=== PATIENT | female | born 1970 | race Caucasian/White ===

== ENCOUNTER 2020-01-24 01:22 | Emergency (ER) | payer SELFPAY ==
[2020-01-24 01:31] VITALS: BP 172/102; PULSE 92; RESP 16; TEMP 36.9; O2SAT 97
--- NOTE | 2020-01-24 01:47 | ED.SKABFB ---
HPI - Skin/Abscess/Foreign Bdy General Chief complaint: Skin/Abscess/Foreign Body Stated complaint: poison marjorie on face Time Seen by Provider: 01/24/20 01:39 Source: patient Mode of arrival: ambulatory Limitations: no limitations History of Present Illness HPI narrative: This patient is a 49 year old female who presents for evaluation of a rash to her face and arms. She states yesterday she accidentally was exposed to Poison Marjorie in her back yard. Yesterday she develop red itchy rash to her face , neck and bilateral arms. She states she woke up tonight with her right eye swollen shut. She has been taking PO benadryl and using topical spray. She states her swelling to her face has improved. She denies difficulty breathing, swallowing, tongue swelling, throat swelling or blurred vision. MD complaint: rash Related Data Allergies Allergy/AdvReac Type Severity Reaction Status Date / Time No Known Allergies Allergy Verified 01/24/20 01:49 Review of Systems Review of Systems: All systems reviewed & are unremarkable except as noted in HPI and below PMFSH Past Medical History Medical History (Updated 01/24/20 @ 02:31 by Leighann Dahl MD) Patient denies medical problems Surgical History Surgical History (Updated 01/24/20 @ 01:47 by Leighann Dahl MD) History of tonsillectomy Social History Social History (Updated 01/24/20 @ 01:53 by Leighann Dahl MD) Smoking status: Never smoker Exam Const: General: no acute distress and alert Orientation/consciousness: patient oriented x3 HENMT: Head: normocephalic and atraumatic Ears: TM's normal bilaterally Face and sinus: edema bilaterally periorbital and maxilla Mouth: Yes Normal oral and palatal mucosa present, Yes lip normal, Yes oropharynx normal and Yes moist mucous membranes Throat: posterior oropharynx normal, tonsils normal and uvula midline Eyes: Pupils: Equal, round and reactive pupils present EOM: EOMs intact bilaterally Resp: Effort & Inspection: normal respiratory effort and no retractions Auscultation: clear to auscultation bilaterally Cardio: Rate: regular rate Rhythm: regular rhythm Skin: Rashes: rashes noted (bilateral face with macular erythemtous rash) Neuro: General: patient oriented x3 and moves all extremities Psych: Mental Status: mental status grossly normal Affect: normal affect Course Reevaluation(s) Reevaluation #1: I discussed discharge plan for treatment of her contact dermatitis. Date: 01/24/20 Time: 02:29 Vital Signs Vital signs: Vital Signs Temperature 98.4 F 01/24/20 01:31 Pulse Rate 92 01/24/20 01:31 Respiratory Rate 16 01/24/20 01:31 Blood Pressure 172/102 H 01/24/20 01:31 Pulse Oximetry 97 01/24/20 01:31 Temperature 97.3 F L 01/24/20 02:40 Pulse Rate 88 01/24/20 02:40 Respiratory Rate 18 01/24/20 02:40 Blood Pressure 154/96 H 01/24/20 02:40 Pulse Oximetry 97 01/24/20 02:40 Discharge Plan Discharge Clinical Impression: Contact dermatitis Qualifiers: Contact dermatitis type: allergic Contact dermatitis trigger: non-food plants Qualified Code(s): L23.7 - Allergic contact dermatitis due to plants, except food Patient Disposition: Home, Self-Care Condition: Stable Instructions: Antibiotic Form, Contact Dermatitis (ED), Shingles (ED) Additional Instructions: Take claritin or abby if you want to take nondrowsy medication. Apply steroid cream to your face. Follow up with your primary care physician if your rash does not resolve after 1 week. Prescriptions: New hydrocortisone 2.5 % ointment 1 applic TOPICAL TID PRN (Reason: rash) Qty: 20 RF: 0 Follow-up/Referrals: PHYSICIAN,HYDROMETALLURGICAL ENGINEER [Primary Care Provider] - Kenneth Harvey DO [Physician] - Discharge Date/Time: 01/24/20 02:41
[2020-01-24] MEDS: methylPREDNISolone SOD SUCC 125 MG VIAL IM (01:49)
[2020-01-24] MEDS: HYDROCORTISONE 2.5% CREAM 30 GM TUBE 1 APPLIC TOPICAL (02:29)
[2020-01-24 02:40] VITALS: BP 154/96; PULSE 88; RESP 18; TEMP 36.3; O2SAT 97
== END 2020-01-24 02:41 | disposition home or self-care (01) ==
PROVIDERS: Emergency Provider General Practice
DX: L23.7 Allergic contact dermatitis due to plants, except food (principal)
CPT/HCPCS: 96372; 99283; A9270; J2930